=== PATIENT | female | born 1975 | race African-American/Black ===

== ENCOUNTER 2018-01-22 01:25 | Inpatient (IN) | payer OTHER ==
[~2018-01-22] VITALS: Ht 165.1 cm; Wt 148.3 kg
[~2018-01-22 01:25] MED LIST: MULTIVITAMINS1 EAC9 PO
[2018-01-22] MEDS ORDERED: PROTONIX40 M3 PO (11:51)
[2018-01-22] MEDS ORDERED: HYCET 7.5 MG-3473 ML PO (11:51)
--- NOTE | 2018-01-22 11:51 | Patient Discharge Instructions ---
Discharge Instructions General Discharge Information You were seen/treated for: Severe morbid obesity You had these procedures: Surgery Date: 01/22/18 Name of Procedure: Laparoscopic sleeve gastrectomy and upper endoscopy Watch for these problems: FEVER>101.3, INCREASED PAIN, REDNESS/SWELLING/DRAINAGE, SHORTNESS OF BREATH, CHEST PAINS No bath, but you may shower: Yes Other wound care: OK TO REMOVE OUTER DRESSINGS. LEAVE WHITE STERI STRIPS IN PLACE. KEEP INCISIONS CLEAN & DRY. Diet Continue normal diet: No Recommended Diet: Bariatric Additional DIET Information: WEEKLY BARIATRIC STAGE DIET ADVANCEMENT TOLERATED, DIRECTED Activity Full Activity/No Limits: No Activity Self Limited: Yes Pounds, do NOT lift more than: 10 Acute Coronary Syndrome Inclusion Criteria At DC or during hospital stay patient has or had the following: ACS DIAGNOSIS No Discharge Core Measures Meds if any: Prescribed or Continued at Discharge Meds if any: NOT Prescribed or Continued at Discharge Congestive Heart Failure Inclusion Criteria At DC or during hospital stay patient has or had the following: CHF DIAGNOSIS No Discharge Core Measures Meds if any: Prescribed or Continued at Discharge Meds if any: NOT Prescribed or Continued at Discharge Cerebrovascular accident Inclusion Criteria At DC or during hospital stay patient has or had the following: CVA/TIA Diagnosis No Discharge Core Measures Meds if any: Prescribed or Continued at Discharge Meds if any: NOT Prescribed or Continued at Discharge Venous thromboembolism Inclusion Criteria VTE Diagnosis No VTE Type NONE VTE Confirmed by (Test) NONE Discharge Core Measures - Per Current guidelines, there needs to be overlap - treatment for the first 5 days of Warfarin therapy. - If discharged on Warfarin prior to 5 days of - overlap therapy, the patient will need to be - assessed for post discharge needs including - *Post discharge parental anticoagulation - *Warfarin and/or parental anticoagulation education - *Follow up date to check INR post discharge At least 5 days overlap therapy as Inpatient No Meds if any: Prescribed or Continued at Discharge Note: Overlap Therapy is Warfarin and Anticoagulant Meds if any: NOT Prescribed or Continued at Discharge
--- NOTE | 2018-01-22 11:55 | Admission Core Measures ---
Acute Coronary Syndrome (CM) ACS Core Measures Acute Coronary Syndrome Diagnosis No Congestive Heart Failure (NEW) CHF Core Measures Congestive Heart Failure Diagnosis No Cerebrovascular Accident CVA Core Measures CVA/TIA Diagnosis No Venous Thromboembolism VTE Core Enriqutea (View Protocol) VTE Risk Factors Surgery No Mechanical VTE Prophylaxis d/t N/A MechProphylax Ordered No VTE Pharm Prophylaxis d/t NA PharmProphylax ordered Problem List As ranked by this Provider includes Assessment & Plan 1. S/P laparoscopic sleeve gastrectomy 2. Morbid obesity HOME MEDS Home Med List Hydrocodone/Acetaminophen (Hycet 7.5 MG-325 MG/15 Ml Soln) 7.5 MG-325 MG/15 ML SOLUTION 15 ML PO Q4-6 PRN PRN PAIN CONTROL Multiple Vitamin (Multivitamins) 1 EACH TABLET 1 TAB PO DAILY SUPPLEMENT ( Reported) Pantoprazole Sodium (Protonix) 40 MG TABLET.DR 1 TAB PO DAILY ULCER RISK REDUCTION
--- NOTE | 2018-01-22 12:16 | Surg Short-stay <48hrs Dis Sum ---
Visit Information Visit Dates Admission Date: 01/22/18 Discharge Date: 01/24/18 Surgical Short Stay DC Summary Admission Diagnosis: Severe morbid obesity Final Diagnosis: Severe morbid obesity Procedure(s): Surgery Date: 01/22/18 Name of Procedure: Laparoscopic sleeve gastrectomy and upper endoscopy Summary/Significant Findings: Electively scheduled laparoscopic sleeve gastrectomy and upper endoscopy on 01/[address]Neil Dumont, for history of severe morbid obesity. Started on stage 1 bariatric diet post-operiately. Upper gi study done on POD#1 to rule out leak and obstruction. Pain control transitioned from iv to oral medication as able. Discharged to home when tolerating bariatric diet and pain controlled. Lovenox teaching done prior to discharge to home, according to her pre-op risk assessment of score of 8. Condition at Discharge: stable Discharge Disposition: home or self care Discharge instructions provided to patient/family: Yes Post discharge follow-up plan: one week follow up with Dr.Neil Dumont Copies to: Laurie BARRETO,Marjorie
[2018-01-22] MEDS ORDERED: LOVENOX40 MG/0.1 SC (14:27)
--- NOTE | 2018-01-22 16:23 | Operative Report ---
Operative/Inv Procedure Report Surgery Date: 01/22/18 Name of Procedure: Laparoscopic sleeve gastrectomy and upper endoscopy Pre-Operative Diagnosis: Severe morbid obesity Post-Operative Diagnosis: Severe morbid obesity Estimated Blood Loss: less than 50ml Surgeon/Senior Accounting Manager: Julia BARRETO,Romain Reina/Maggie Rivas Anesthesia: general endotracheal tube Monitors: None Urine Output: None nonmonitored Specimens: Stomach Complications: None Condition: Stable Operative Indication: Patient is a 42-year-old female with severe morbid obesity is undergone workup and evaluation for gastric sleeve. After adequate workup. The patient is now ready for gastric sleeve. Explained the risks and potential complications of the procedure in detail including bleeding infection deep venous thrombosis pulmonary embolism injury to the esophagus stomach small intestine and large intestine liver spleen pancreas. She could have leakage from the gastric staple line need for drainage and further procedures or further surgery. She may have postoperative gastric reflux which may necessitate further surgery. She is so his risks for possible mortality is consented for surgical intervention. Operative/Procedure Note Note: Patient was brought into the operating room placed in the operative table in the supine position after the administration of general anesthesia the patient was prepped and draped in sterile fashion. Incision was made below the umbilicus down to the fascia 2 [id number] 0 Vicryl sutures were placed in the fascia. A blunt port was inserted into the abdomen and the abdomen since further with CO2 gas. Middle port was placed in the right upper quadrant 12 mm port in the right midabdomen subxiphoid 5 mm incision and the liver was elevated. No visible hiatal hernia. 12 mm port was placed fci between the umbilicus and the xiphoid. The Mediport was placed the left upper quadrant. A 15 mm port was now used for the umbilicus. The Garcia colic ligament was taken down with the LigaSure device. We stayed along the curve of the stomach making sure not to cauterize the stomach tissue. Short gastric vessels were taken down as well. The left crura of the diaphragm was clearly visualized. There was a large vessel with a hematoma at the beginning of the dissection near the pyloric area. Which multiple hemoclips were placed for hemostasis. Bleeding but small hematoma. At this time the stomach was decompressed and the NG tube was removed. Lao bougie was inserted into the stomach stapling was then performed with 2 firings of a black cartridge and then moving over to a purple cartridge for of these for firings. Was without a seam guard. There is excellent hemostasis all the ports were visualized and a MANSI drain was placed over the staple line and brought out the right upper quadrant. He was now performed the usual fashion Olympus endoscope inserted in the posterior oropharynx down the esophagus which appeared within normal limits the GE junction was noted at 40 cm. There was no evidence of bleeding within the stomach. There is an excellent staple line which was long and thin and consistent throughout there was no angulation at the incision sure off. The pylorus the stomach was visualized and the scope was intubated into the first part of the duodenum. This was suctioned out stomach was suctioned out and the scope was removed. At this time after the MANSI drain was placed the ports removed under direct vision the gas removed from the abdomen the Valsalva maneuvers performed fashion was closed with 2 interrupted 0 Vicryl sutures [id number]. The MANSI was sewn in with a 2-0 nylon. Dressing was placed in the wound site. The patient out procedure well was brought to recovery room in stable condition end of dictation o'clock M.D.
[2018-01-22 18:40] VITALS: BP 130/86
--- NOTE | 2018-01-22 19:10 | PN- Bariatrics ---
Subjective Subjective: Postop check: Patient with epigastric pain and actively nauseous and vomiting. She has recovered from the anesthesia well. Objective Vital Signs and I&Os Vital Signs Date Time Temp Pulse Resp B/P B/P Pulse O2 O2 Flow FiO2 Mean Ox Delivery Rate 01/22 1840 97.6 87 18 130/86 94 Room Air Physical Exam: Well-developed well-nourished , Actively vomiting appears uncomfortable HEENT: Atraumatic, extraocular motion intact Neck: Supple, no lymphadenopathy Respiratory: No respiratory distress Abdomen: Obese, dressings clean dry and intact, incision sites clean dry and intact, positive bowel sounds Extremities: No edema, no calf pain Neuro: Alert and oriented x3 Skin: Warm and dry, no rash on exposed skin Assessment/Plan Assessment/Plan Postop day #0 status post laparoscopic sleeve gastrectomy secondary to morbid obesity Perioperative antibiotics. Pain medication as needed. Out of bed Continue IV fluids Bariatric stage I diet N.p.o. after midnight for upper GI in the morning Follow a.m. labs Heparin subcu for DVT prophylaxis ALPS for DVT prophylaxis Protonix for GI prophylaxis Zofran for nausea and give Phenergan for nausea now as well as Decadron 8 mg IV x1 Core Measures Venous Thromboembolism VTE Risk Factors Surgery No Mechanical VTE Prophylaxis d/t N/A MechProphylax Ordered No VTE Pharm Prophylaxis d/t NA PharmProphylax ordered
[2018-01-22 22:45] VITALS: BP 141/86
[2018-01-23 06:21] VITALS: BP 154/78
--- NOTE | 2018-01-23 07:22 | PN- Student ---
Kimberly torres 01/23/18 0713: Subjective Subjective: Pt denies being in any pain. She has been nauseous since last night and her last episode of vomitus was 1 hour ago. Says that Zofran has helped calm her nausea a little. Has not had difficulty urinating. Has only gotten out of bed to walk to the bathroom. Has not passed gas or had a bowel movement yet. No CP, SOB, difficulty breathing, QUIJANO, or dizziness. Objective Objective: Vitals: See EMR Gen: Middle aged female, lying in bed, drowsy but arousable and answers questions appropriately. Cardio: Regular rate and rhythm. S1 and S2. No murmurs, rubs or gallops. Pulm: Breath sounds auscultated with no wheezes, rhonchi or rales. Abdomen: Soft and non-distended. Dressing over umbilicus saturated with blood and was changed. All other incisions clean dry and intact. Drain in place in RUQ and draining small amounts of blood. Normoactive bowel sounds. Non-tender to palpation. Extremities: Calves are soft and non-tender bilaterally. Results Results: Laboratory Tests 01/23/18 0615: Sodium Pending, Potassium Pending, Chloride Pending, Carbon Dioxide Pending, Anion Gap Pending, BUN Pending, Creatinine Pending, BUN/Creatinine Ratio Pending , Glucose Pending, Magnesium Pending, CBC w Diff Pending, WBC Pending, RBC Pending, Hgb Pending, Hct Pending, MCV Pending, MCH Pending, MCHC Pending, RDW Pending, Plt Count Pending, MPV Pending 01/22/18 1159: Urine Test NEGATIVE Assessment/Plan Assessment: 42 year old female POD#1 s/p laparoscopic sleeve gastrectomy for tx of morbid obesity. Pt has been nauseous and vomited after surgery. Post-operative pain has been well controlled. Plan: Continue with pain control as needed. Continue with Zofran as needed for nausea. NPO for now. UGI series scheduled for this morning, will follow up with results. Protonix for GI ppx. Heparin SQ and ALPs for DVT ppx. Lovenox teaching for outpatient DVT ppx. Continue with IVF fluids. Encourage ambulation. Monitor for bowel movement. Will discuss with attending and PAs. My Estrada 01/23/18 0728: Objective Results Results: Laboratory Tests 01/23/18 0615: Sodium Pending, Potassium Pending, Chloride Pending, Carbon Dioxide Pending, Anion Gap Pending, BUN Pending, Creatinine Pending, BUN/Creatinine Ratio Pending , Glucose Pending, Magnesium Pending, CBC w Diff Pending, WBC Pending, RBC Pending, Hgb Pending, Hct Pending, MCV Pending, MCH Pending, MCHC Pending, RDW Pending, Plt Count Pending, MPV Pending 01/22/18 1159: Urine Test NEGATIVE Assessment/Plan Plan: agree with above PA-S note will f/u upper gi study and labs oob/ambulation will d/w
[2018-01-23 07:56] LABS: ABSOLUTE BASOPHIL COUNT 0 /CUMM (0.0-0.2); ABSOLUTE EOSINOPHIL COUNT 0 /CUMM (0.0-0.7); ABSOLUTE GRANULOCYTE CT 10.9 /CUMM (1.4-6.5); ABSOLUTE LYMPH COUNT 0.9 /CUMM (1.2-3.4); ABSOLUTE MONOCYTE COUNT 0.4 /CUMM (0.10-0.60); BASOPHIL % 0 % (0.0-2.0); EOSINOPHIL % 0 % (0-5); HEMATOCRIT 35.8 % (37-47); MEAN CORPUSCULAR HGB 27.9 PG (27.0-31.0); MEAN CORPUSCULAR HGB CONC 32.5 G/DL (33.0-37.0); MEAN CORPUSCULAR VOLUME 85.6 FL (81.0-99.0); MEAN PLATELET VOLUME 10.2 FL (7.4-10.4); PLATELET COUNT 301 /CUMM (130-400); RBC DISTRIBUTION WIDTH 16.4 % (11.5-14.5); RED BLOOD CELL CT 4.18 /CUMM (4.20-5.40); WHITE BLOOD CELL COUNT 12.1 /CUMM (4.8-10.8)
[2018-01-23 08:42] LABS: GRANULOCYTE % 89.8 % (42.2-75.2)
--- NOTE | 2018-01-23 09:55 | RADIOLOGY REPORT ---
EXAMINATION: FL UPPER GI SERIES CLINICAL INFORMATION: Status post sleeve gastrectomy. Evaluate for leak or obstruction. COMPARISON: None TECHNIQUE: A preliminary berry picker view is obtained. A single contrast upper GI series with fluoroscopy and spot imaging was performed. The patient ingested 30 mL of Gastroview without difficulty and was evaluated in the upright position. FINDINGS: Contrast flows easily through the distal esophagus, stomach, and duodenum. Sleeve gastrectomy changes are noted. There is no evidence of leak or obstruction. FLUOROSCOPY TIME: 42 seconds. NUMBER OF IMAGES: 4 images IMPRESSION: No evidence of leak or obstruction status post sleeve gastrectomy.
[2018-01-23 14:07] VITALS: BP 138/96
[2018-01-23 22:39] VITALS: BP 145/72
[2018-01-24 06:59] VITALS: BP 134/81
--- NOTE | 2018-01-24 07:12 | PN- Bariatrics ---
See Addendum Subjective Subjective: Reports pain controlled. Tolerating stage 1 diet. Nausea resolved. Passing flatus and +bm yesterday. Out of bed without difficulty. No shortness of breath. No chest pains. No dizziness. Voiding without difficulty. Understands lovenox teaching / importance. Anticipates discharge home today. Objective Vital Signs and I&Os Vital Signs Date Time Temp Pulse Resp B/P B/P Pulse O2 O2 Flow FiO2 Mean Ox Delivery Rate 01/24 0659 98.8 56 18 134/81 98 Room Air 01/24 0600 Room Air 01/23 2239 98.5 55 18 145/72 98 Room Air 01/23 2200 Room Air 01/23 1407 97.8 74 18 138/96 16 Room Air 01/23 1400 96 Room Air 01/23 0800 97 Room Air Intake & Output 01/24 0800 01/24 0000 01/23 1600 01/23 0800 01/23 0000 01/22 1600 Intake Total 520 798 620 6816 250 Output Total 350 754 615 3068 420 Balance 170 -430 -155 -80 -170 Intake, IV 384 211 7412 250 Intake, Oral 120 240 150 0 Number 0 Bowel Movements Output, 20 30 30 20 Drainage Output, Urine 350 824 430 9718 400 Patient 327 lb Weight Weight Bed scale Measurement Method Physical Exam: General - alert & oriented x 3. comfortable. no acute distress. Lungs - clear bilaterally. no w/r/r. Cardiac - s1s2. reg. Abdomen - soft. MANSI drain with scant serous drainage. dressings c/d/i. anticipated julianna-incisional tenderness. Extremities - warm bilaterally. no c/c/e. calves soft and nontender b/l. Current Medications: Current Medications Sig/Eric Start time Last Medication Dose Route Stop Time Status Admin Acetaminophen 1,000 MG Q6H 01/23 2000 DC 01/23 N/A 1 UNIT IV 01/23 1414 1343 Dexamethasone 8 MG ONCE PRN 01/22 164 AC 01/22 IV PUSH 1917 Dextrose/Sodium 1,000 ML Q8H 01/22 164 DC 01/23 Chloride IV 0843 Heparin Sodium 5,000 UNIT Q8 01/22 2200 AC 01/24 (Porcine) SC 0543 Hydrocodone Bitart/ 15 ML Q4-6 PRN PRN 01/23 1400 AC 01/24 Acetaminophen PO 0558 Morphine Sulfate 2 MG Q4-6 PRN PRN 01/22 1645 AC 01/22 IV 2136 Ondansetron HCl 4 MG Q6P PRN 01/22 1645 AC 01/23 IV 0530 Pantoprazole Sodium 40 MG DAILY 01/23 0900 AC 01/23 IV 0835 Patient Medication 1 ED ONE ONE 01/23 1115 DC 01/23 Teaching ED 01/23 1116 1344 Promethazine HCl 25 MG Q4P PRN 01/22 1915 AC 01/23 IV 01/29 1914 0121 Simethicone 40 MG Q6P PRN 01/22 1645 AC PO Results Last 48 Hours of Labs: Laboratory Tests 01/23 01/22 0615 1159 Chemistry Sodium (137 - 145 mmol/L) 132 L Potassium (3.5 - 5.1 mmol/L) 4.6 Chloride (98 - 107 mmol/L) 99 Carbon Dioxide (22 - 30 mmol/L) 25 Anion Gap (5 - 16) 8 BUN (7 - 17 mg/dL) 5 L Creatinine (0.5 - 1.0 mg/dL) 0.7 Estimated GFR (>60 ml/min) > 60 BUN/Creatinine Ratio (7 - 25 %) 7.1 Glucose (65 - 99 mg/dL) 132 H Magnesium (1.6 - 2.3 mg/dL) 2.0 Hematology CBC w Diff NO MAN DIFF REQ WBC (4.8 - 10.8 /CUMM) 12.1 H RBC (4.20 - 5.40 /CUMM) 4.18 L Hgb (12.0 - 16.0 G/DL) 11.6 L Hct (37 - 47 %) 35.8 L MCV (81.0 - 99.0 FL) 85.6 MCH (27.0 - 31.0 PG) 27.9 MCHC (33.0 - 37.0 G/DL) 32.5 L RDW (11.5 - 14.5 %) 16.4 H Plt Count (130 - 400 /CUMM) 301 MPV (7.4 - 10.4 FL) 10.2 Gran % (42.2 - 75.2 %) 89.8 H Lymphocytes % (20.5 - 51.1 %) 7.2 L Monocytes % (1.7 - 9.3 %) 3.0 Eosinophils % (0 - 5 %) 0 Basophils % (0.0 - 2.0 %) 0 Absolute Granulocytes (1.4 - 6.5 /CUMM) 10.9 H Absolute Lymphocytes (1.2 - 3.4 /CUMM) 0.9 L Absolute Monocytes (0.10 - 0.60 /CUMM) 0.4 Absolute Eosinophils (0.0 - 0.7 /CUMM) 0 Absolute Basophils (0.0 - 0.2 /CUMM) 0 Urines Urine Test NEGATIVE Assessment/Plan Assessment/Plan This 42 year old female with severe morbid obesity, is POD#2 s/p laparoscopic sleeve gastrectomy and upper endoscopy, doing well tolerating stage 1 diet pain controlled MANSI drain removed lovenox teaching done protonix - gi ppx hep sc - dvt ppx oob/ambulating well d/c home today will d/w Core Measures Venous Thromboembolism VTE Risk Factors Surgery No Mechanical VTE Prophylaxis d/t N/A MechProphylax Ordered No VTE Pharm Prophylaxis d/t NA PharmProphylax ordered
[2018-01-24] MEDS ORDERED: LOVENOX40 MG/0.1 SC (07:17)
[2018-01-24] MEDS ORDERED: HYCET 7.5 MG-3473 ML PO (07:17)
[2018-01-24] MEDS ORDERED: PROTONIX40 M3 PO (07:17)
== END 2018-01-24 11:08 | DRG 621 ==
LOC: SDA 01:25 → 2NB 01:25 → ENRESERV 16:18 → ENTRNSPT 18:23 → EDTRNSPTSTS 18:26 → 2NB 18:39 → CMPTRNSPT 18:56 → ENPENDDIS 01-24 08:00 → 2NB 01-24 11:08
PROVIDERS: Physician Assistant
PROC: 3E0T3BZ Introduction of Anesthetic Agent into Peripheral Nerves and Plexi, Percutaneous Approach (ICD-10-PCS; principal; 2018-01-22)
PROC: 0DB64Z3 Excision of Stomach, Percutaneous Endoscopic Approach, Vertical (ICD-10-PCS; principal; 2018-01-22)
DX: E66.01 Morbid (severe) obesity due to excess calories (principal); Z68.43 Body mass index [BMI] 50.0-59.9, adult; K21.9 Gastro-esophageal reflux disease without esophagitis; K44.9 Diaphragmatic hernia without obstruction or gangrene; R11.2 Nausea with vomiting, unspecified; F10.21 Alcohol dependence, in remission
CPT/HCPCS: 2NBP; 36592; 74240; 81025; 82436; J0131; J0690; J1100; J1630; J1644; J2405; J2550; J2765; J3490; J7042